=== PATIENT | female | born 1985 | race Hispanic/Latino ===

== ENCOUNTER 2018-05-16 12:58 | Inpatient (IN) | payer MEDICAID, OTHER ==
[2018-05-16 13:57] LABS: BASO % 0.6 % (0.0-2.0); EOS # 0.3 K/uL (0.0-0.7); EOS % 4.4 % (0.0-4.0); HEMOGLOBIN 13.7 g/dL (11.0-16.0); LYMPH # 1.5 K/uL (1.0-4.3); MEAN CELL VOLUME 87.1 fL (81.0-99.0); MEAN CORPUSCULAR HEMOGLOBIN 29.8 pg (27.0-31.0); MEAN CORPUSCULAR HGB CONC 34.2 g/dL (33.0-37.0); MEAN PLATELET VOLUME 8.5 fL (7.2-11.7); MONO # 0.6 K/uL (0.0-0.8); MONO % 7.4 % (0.0-10.0); NEUT # 5.2 K/uL (1.8-7.0); NEUT % 67.6 % (50.0-75.0); RBC 4.61 Mil/uL (3.80-5.20); RED CELL DISTRIBUTION WIDTH 13.2 % (11.5-14.5); WHITE BLOOD COUNT 7.6 K/uL (4.8-10.8)
[2018-05-16 14:03] LABS: SQUAMOUS EPITHIAL 4 /hpf (0-5); URINE BILIRUBIN NEGATIVE (NEGATIVE); URINE BLOOD NEGATIVE (NEGATIVE); URINE CLARITY Clear (Clear); URINE COLOR Yellow (YELLOW); URINE GLUCOSE (UA) NORMAL (Normal); URINE LEUKOCYTE ESTERASE NEG Leu/uL (Negative); URINE PROTEIN NEGATIVE (NEGATIVE); URINE UROBILINOGEN NORMAL mg/dL (0.2-1.0)
[2018-05-16 14:08] LABS: ALB/GLOB RATIO 1.2 (1.0-2.1); ALT/SGPT 37 U/L (9-52); AST/SGOT 28 U/L (14-36); BLOOD UREA NITROGEN 16 mg/dL (7-17); CALCIUM 9.2 mg/dl (8.6-10.4); GFR AFRICAN-AMERICAN > 60; GFR NON-AFRICAN AMERICAN > 60
--- NOTE | 2018-05-16 14:22 | C.PDOC ---
History Of Present Illness 33yo female, presents to the emergency department, pre screened for detox from heroin. Denies any SI/HI, nausea/vomiting. Time Seen by Provider: 05/16/18 13:21 Chief Complaint (Nursing): Substance Abuse History Per: Patient History/Exam Limitations: no limitations Current Symptoms Are (Timing): Still Present Past Medical History Reviewed: Historical Data, Nursing Documentation, Vital Signs Vital Signs: Last Vital Signs Temp 98.4 F 05/16/18 14:44 Pulse 64 05/16/18 14:44 Resp 16 05/16/18 14:44 BP 120/75 05/16/18 14:44 Pulse Ox 97 05/16/18 14:51 - Medical History PMH: Anxiety, Asthma, HTN Family History: States: No Known Family Hx - Social History Hx Alcohol Use: No Hx Substance Use: Yes - Immunization History Hx Tetanus Toxoid Vaccination: Yes Hx Influenza Vaccination: No Hx Pneumococcal Vaccination: No Review Of Systems Constitutional: Negative for: Fever Gastrointestinal: Negative for: Nausea, Vomiting Physical Exam - Physical Exam Appears: Non-toxic, No Acute Distress Skin: Warm, Dry, Rash Head: Atraumatic Eye(s): bilateral: Normal Inspection Oral Mucosa: Moist Lips: Normal Appearing Neck: Normal ROM Chest: Symmetrical Cardiovascular: Rhythm Regular, No Murmur Respiratory: Normal Breath Sounds, No Accessory Muscle Use Gastrointestinal/Abdominal: Soft, No Tenderness Extremity: Normal ROM, No Deformity Neurological/Psych: Oriented x3, Normal Speech ED Course And Treatment - Laboratory Results Result Diagrams: 05/16/18 13:51 05/16/18 13:51 Lab Interpretation: Normal O2 Sat by Pulse Oximetry: 97 Pulse Ox Interpretation: Normal Progress Note: Case discussed and patient evaluated by crisis team whp request admission to Detox Reassessment Condition: Unchanged - Physician Consult Information Physician Contacted: Sofiya Dove Outcome Of Conversation: admit Disposition Discussed With : Sofiya Dove Doctor Will See Patient In The: Hospital Counseled Patient/Family Regarding: Studies Performed, Diagnosis, Need For Followup - Disposition Disposition: HOME/ ROUTINE Disposition Time: 15:00 Condition: STABLE - POA Present On Arrival: None - Clinical Impression Clinical Impression: Drug abuse, Drug dependence - Scribe Statement The provider has reviewed the documentation as recorded by the Scribe (Rogelio Kauffman) All medical record entries made by the Scribe were at my direction and personally dictated by me. I have reviewed the chart and agree that the record accurately reflects my personal performance of the history, physical exam, medical decision making, and the department course for this patient. I have also personally directed, reviewed, and agree with the discharge instructions and disposition. Decision To Admit - Pt Status Changed To: Hospital Disposition Of: Inpatient - Admit Certification Admit to Inpatient:: After my assessment, the patient will require hospitalization for at least two midnights. This is because of the severity of symptoms shown, intensity of services needed, and/or the medical risk in this patient being treated as an outpatient. - InPatient: Physician Admission Certification: I certify that this patient requires 2 or more midnights of care for the following reason:: opioid abuse - . Bed Request Type: Detox Admitting Physician: Sofiya Dove Patient Diagnosis: Drug abuse, Drug dependence
[2018-05-16 14:24] LABS: BARBITURATES, UR NEGATIVE (NEGATIVE); BENZODIAZEPINES, UR NEGATIVE (NEGATIVE); PHENCYCLIDINE, UR NEGATIVE (NEGATIVE)
[2018-05-16 14:27] LABS: OPIATES, UR POSITIVE (NEGATIVE)
--- NOTE | 2018-05-16 14:50 | PCM.BM ---
<Walt Randolph - Last Filed: 05/16/18 14:49> Treatment Plan Problems - Problems identified on initial assessmt potential for opiate withdrawal Date Initiated: 05/16/18 Time Initiated: 14:50 Status: Active Treatment assets and liabiliti Patient Assests: adapts well, cooperative Patient Liabilities: substance abuse - Milieu Protocol Maintain good personal hygiene: daily Encourage regular showers, daily Remind patient to perform daily oral care, daily Assist patient to perform ADL's Conduct patient checks and document Observation sheet: Q15 minutes Maintain personal safety: every shift Educate patient to report safety concerns to staff, every shift Monitor environment for contraband/sharps Medication safety: Monitor for expected outcome, potential side effects: every shift, Assess barriers to learning: every shift, Assess readiness for medication education: every shift <Sofiya Dove - Last Filed: 05/17/18 23:35> - Diagnosis (1) Opioid use disorder, severe, dependence Status: Acute Interventions: 05/17/18 23:35 * Assess 7x/week regarding severity of withdrawal * Educate regarding risks, benefits, side effects and alternatives of medications * Use Motivational Interviewing for abstinence * Use CBT for relapse prevention * Medication management for withdrawal symptoms * Encourage medication assisted treatment *
[2018-05-16] MEDS ORDERED: Aluminum Hydroxide/Magnesium Hydroxide Susp (30 mL) PO PRN (15:16)
--- NOTE | 2018-05-17 10:19 | PCM.PSYCH ---
Initial Psychiatric Evaluation - Initial Psychiatric Evaluation Type of Admission: Voluntary Legal Status: Capacity Chief Complaint (in patient's own words): "I need detox from heroin." History of Present Illness and Precipitating Events: Pt is seen, chart reviewed, case discussed with staff. 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 Pt began using heroin at 23 years old; pt uses 10 bags/day; pt primarily used intranasally but began IV into both arms a few days ago. Pt uses 1 bottle of cocaine/day; pt smokes marijuana every day; pt denies alcohol, cigarettes, and other illicit drugs. Pt detoxed once before in October at [facility]; pt was 3 days sober before relapse; pt has never been to rehab. Pt's longest sobriety lasted for 3 years. Pt describes and displays significant withdrawal sxs. She also has substance-induced depression and anxiety Past medical hx includes asthma and high blood pressure; pt uses inhaler as needed for asthma and a diuretic which she does not take. Family hx: osteoporosis on mothers side. Psychiatric hx: grandmother has a hx of alcohol use disorder and is 30 years clean. Current Medications: Active Medications Generic Name Dose Route Start Last Admin Trade Name Freq PRN Reason Stop Dose Admin Al Hydrox/Mg Hydrox/Simethicone 30 ml 05/16/18 15:16 Maalox 30 Ml PO TID PRN Indigestion / Heartburn Clonidine HCl 0.1 mg 05/16/18 15:16 05/16/18 16:05 Catapres PO 0.1 mg Q8 PRN Administration COWS Score More or Equal to 5 Gabapentin 300 mg 05/16/18 18:00 05/17/18 09:21 Neurontin PO 300 mg BID SHIRAZ Administration Hydroxyzine HCl 25 mg 05/16/18 15:08 05/16/18 16:05 Atarax PO 25 mg Q4H PRN Administration Anxiety Ibuprofen 600 mg 05/16/18 15:08 Motrin Tab PO Q6H PRN Pain, moderate (4-7) Loperamide HCl 2 mg 05/16/18 15:16 05/16/18 16:05 Imodium PO 2 mg Q8 PRN Administration Diarrhea Methadone HCl 15 mg 05/17/18 10:00 05/17/18 09:21 Methadone PO 05/21/18 09:59 15 mg Q24H SHIRAZ Administration Taper Ondansetron HCl 4 mg 05/16/18 15:16 Zofran Tab PO Q8 PRN Nausea/Vomiting Trazodone HCl 100 mg 05/16/18 15:08 Desyrel PO HS PRN Insomnia Past Psychiatric History - Past Psychiatric History Previous Treatment History: Inpatient Prior Professional Help: Detox @ [facility] Pertinent Medical Hx (Current Medical&Sleep Prob, Allergies): Allergies Allergy/AdvReac Type Severity Reaction Status Date / Time No Known Allergies Allergy Unverified 05/16/18 13:12 Albuterol Sulfate [Proventil Hfa] 0.09 mg IH Q6H PRN 05/16/18 Alprazolam [Xanax] 0.5 mg PO Q12H PRN 05/16/18 hydroCHLOROthiazide 05/16/18 Review of Systems - Psychiatric Psychiatric: Abnormal Sleep Pattern, Anhedonia, Anxiety, Depression, Difficulty Concentrating. absent: Auditory Hallucinations, Hallucinations, Homicidal Ideation, Memory Loss, Panic Attacks, Paranoia, Suicidal Ideation, Visual Hallucinations, Tactile Hallucinations Mental Status Examination - Personal Presentation Personal Presentation: Looks stated age - Affect Affect: Broad - Motor Activity Motor Activity: Calm - Reliability in Providing Information Reliability in Providing Information: Good - Speech Speech: Organized - Mood Mood: Neutral - Formal Thought Process Formal Thought Process: No Impairment - Obsessions/Compulsions Obsessions: No Compulsions: No - Cognitive Functions Orientation: Person, Place, Situation, Time Sensorium: Alert Attention/Concentration: Attentive Estimate of Intelligence: Average Judgement: Intact, as evidence by: Insight regarding need for hospitalization Memory: Recent intact, as evidence by: Ability to recall events of the day, Remote intact, as evidenced by: Abilit to recall sig. life events - Risk Risk: Withdrawal, Diminished functioning - Strength & Assets Inventory Strength & Assets Inventory: Intelligence, Family support, Education, Employment history, Cooperative - Limitations Limitations: Other DSM 5 DX - DSM 5 DSM 5 Diagnosis: Opioid Withdrawal Opioid Use Disorder, severe Cocaine Withdrawal Cocaine Use Disorder, severe Cannabis Use Disorder, severe Substance-induced depressive d/o (and anxiety d/o) - Recommended/Plan of Treatment Treatment Recommendations and Plan of Treatment: Taper with Methadone Gabapentin for augmentation if needed As needed medications, Atarax 25 mg for anxiety, Motrin for pain All risks, benefits and alternatives of the meds discussed, and the pt agreed and understood. Attend groups and activities Supportive therapy and psychoeducation [place] for abstinence CBT for relapse prevention Encourage MAT Refer to rehab or IOP, and self-help groups 35 min Projected ELOS: 4-5 days Prognosis: good w treatment - Smoking Cessation Smoking Cessation Initiated: Yes
[2018-05-17] MEDS ORDERED: Albuterol HFA 90 mcg/actuation (8 g) INH PRN (10:22)
--- NOTE | 2018-05-18 16:48 | PCM.PYCHPN ---
Psychiatric Progress Note - Psychiatric Progress Note Patient seen today, length of contact: 15 min Patient Chief Complaint: "I have back pain." Problems Identified/Issues Discussed: The pt is seen, chart reviewed, case discussed with staff. Pt states that she was up all night since her roommate was up all night, also states that shes having back pain. Otherwise she has no complaints The pt is compliant with medications and reports no side-effects. Symptoms are improving but needs more time to stabilize. Pt attends groups and activities. Support given, psycho-education provided. After care discussed. Mental Status Examination - Cognitive Function Orientation: Person, Place, Situation, Time Memory: Intact Attention: WNL Concentration: WNL Association: WNL Fund of Knowledge: WNL - Mood Mood: Neutral - Affect Affect: Broad - Speech Speech: Appropriate - Formal Thought Process Formal Thought Process: No Impairment - Suicidal Ideation Suicidal Ideation: No - Homicidal Ideation Homicidal Ideation: No Goal/Treatment Plan - Goal/Treatment Plan Progress Toward Problem(s) and Goals/Treatment Plan: Taper with Methadone Gabapentin for augmentation if needed As needed medications, Atarax 25 mg for anxiety, Motrin for pain All risks, benefits and alternatives of the meds discussed, and the pt agreed and understood. Attend groups and activities Supportive therapy and psychoeducation [place] for abstinence CBT for relapse prevention Encourage MAT Refer to rehab or IOP, and self-help groups 16 min
[2018-05-19 09:52] VITALS: RESP 18
--- NOTE | 2018-05-19 19:56 | PCM.PYCHPN ---
Psychiatric Progress Note - Psychiatric Progress Note Patient seen today, length of contact: 15 min Patient Chief Complaint: I AM TRYING TO FIND A PLACE FOR REHAB Problems Identified/Issues Discussed: PT SEEN AND EXAMINED. DISCUSSED WITH STAFF ON WAITING LIST FOR NEW HOPE IF CANNOT GO THERE WILL TRY TO FIND ONE NEAR HER PARENTS Medical Problems: NONE REPORTED Diagnostic Results: REVIEWED DSM 5 Symptoms Update: INCREASED ANXIETY Medication Change: Yes (TAPER DOSAGE CHANGES DAILY) Medical Record Reviewed: Yes Mental Status Examination - Cognitive Function Orientation: Person, Situation, Time Memory: Intact Attention: WNL Association: WNL Fund of Knowledge: WNL - Mood Mood: Anxious, Neutral - Affect Affect: Broad, Constricted - Speech Speech: Appropriate - Formal Thought Process Formal Thought Process: No Impairment - Suicidal Ideation Suicidal Ideation: No - Homicidal Ideation Homicidal Ideation: No Goal/Treatment Plan - Goal/Treatment Plan Need for Continued Stay: Remain at risks for inpatient hospitalization, Severe depression anxiety Progress Toward Problem(s) and Goals/Treatment Plan: OPIOID WITHDRAWAL METHADONE MEDICATIONSW OPIOID USE DISORDER CO CBT SUPPORTIVE PSYCHOTHERAPY GROUPMILIEU AND RECREATIONAL THERAPY Estimated Date of D/C: 05/21/18 - Smoking Cessation Smoking Cessation Initiated: No
[2018-05-20 10:58] VITALS: BP 111/75; PULSE 72; TEMP 97.7; O2SAT 99
== END 2018-05-20 11:45 | disposition hospice, home (50) | DRG 745 ==
LOC: C.ER 12:58 → C.7D 14:39
PROVIDERS: ADMIT Psychiatry & Neurology Psychiatry; ATTEND Psychiatry & Neurology Psychiatry
PROC: HZ2ZZZZ Detoxification Services for Substance Abuse Treatment (ICD-10-PCS; principal; 2018-05-16)
PROC: HZ52ZZZ Individual Psychotherapy for Substance Abuse Treatment, Cognitive-Behavioral (ICD-10-PCS; 2018-05-16)
PROC: HZ59ZZZ Individual Psychotherapy for Substance Abuse Treatment, Supportive (ICD-10-PCS; 2018-05-16)
PROC: HZ56ZZZ Individual Psychotherapy for Substance Abuse Treatment, Psychoeducation (ICD-10-PCS; 2018-05-16)
PROC: HZ42ZZZ Group Counseling for Substance Abuse Treatment, Cognitive-Behavioral (ICD-10-PCS; 2018-05-16)
PROC: HZ46ZZZ Group Counseling for Substance Abuse Treatment, Psychoeducation (ICD-10-PCS; 2018-05-16)
PROC: GZHZZZZ Group Psychotherapy (ICD-10-PCS; 2018-05-16)
PROC: GZ58ZZZ Individual Psychotherapy, Cognitive-Behavioral (ICD-10-PCS; 2018-05-16)
PROC: GZ56ZZZ Individual Psychotherapy, Supportive (ICD-10-PCS; 2018-05-16)
DX: F11.23 Opioid dependence with withdrawal (principal); F12.20 Cannabis dependence, uncomplicated; F14.23 Cocaine dependence with withdrawal; F32.89 Other specified depressive episodes; F41.9 Anxiety disorder, unspecified; I10 Essential (primary) hypertension; J45.909 Unspecified asthma, uncomplicated